=== PATIENT | female | born 1970 | race Two or more races ===

== ENCOUNTER 2021-08-09 09:00 | Outpatient (CLI) | payer OTHER | END 2021-08-09 09:30 | disposition home or self-care (01) | LOC: PPH VACUNA 09:00 | PROVIDERS: ATTEND Emergency Medicine Pediatric Emergency Medicine | DX: Z23 Encounter for immunization (principal) ==

== ENCOUNTER 2022-05-02 08:11 | Outpatient (CLI) | payer OTHER | END 2022-05-02 08:19 | disposition home or self-care (01) | LOC: TOM 08:11 | PROVIDERS: ATTEND General Practice | DX: K56.600 Partial intestinal obstruction, unspecified as to cause (principal) ==